=== PATIENT | male | born 1945 | race Caucasian/White ===

== ENCOUNTER → 2019-10-05 11:18 | Outpatient (BNVA) | payer MEDICARE, SELFPAY | PROVIDERS: Family Provider Family Medicine; PCP Family Medicine; Visit Provider Internal Medicine Rheumatology | DX: M05.79 Rheumatoid arthritis with rheumatoid factor of multiple sites without organ or systems involvement (principal); Z11.59 Encounter for screening for other viral diseases; Z11.1 Encounter for screening for respiratory tuberculosis; Z79.899 Other long term (current) drug therapy; Z79.01 Long term (current) use of anticoagulants; I25.10 Atherosclerotic heart disease of native coronary artery without angina pectoris; Z87.891 Personal history of nicotine dependence | CPT/HCPCS: 36415; 82565; 84460; 85025; 85651; 86140; 86480; 86704; 86706; 87340; 99214 ==

== ENCOUNTER → 2019-10-23 11:15 | Outpatient (BNVA) | payer MEDICARE, SELFPAY | PROVIDERS: Family Provider Family Medicine; Visit Provider Family Medicine | DX: J44.9 Chronic obstructive pulmonary disease, unspecified (principal); E78.5 Hyperlipidemia, unspecified | CPT/HCPCS: 80061 ==

== ENCOUNTER → 2019-12-10 10:09 | Outpatient (BNVA) | payer MEDICARE, SELFPAY | PROVIDERS: Family Provider Family Medicine; PCP Family Medicine; Visit Provider Internal Medicine Rheumatology | DX: M05.79 Rheumatoid arthritis with rheumatoid factor of multiple sites without organ or systems involvement (principal); G40.109 Localization-related (focal) (partial) symptomatic epilepsy and epileptic syndromes with simple partial seizures, not intractable, without status epilepticus; Z79.899 Other long term (current) drug therapy | CPT/HCPCS: 36415; 80076; 82565; 85025; 85651; 86140; 99213 ==

== ENCOUNTER → 2019-12-10 10:17 | Outpatient (BNVA) | payer MEDICARE, SELFPAY | PROVIDERS: Family Provider Family Medicine; PCP Family Medicine | DX: M05.79 Rheumatoid arthritis with rheumatoid factor of multiple sites without organ or systems involvement (principal) | CPT/HCPCS: 85025 ==

== ENCOUNTER 2019-12-12 15:44 | Outpatient (CLI) | payer MEDICARE, SELFPAY ==
[2019-12-12 16:28] LABS: Immunoglobulin IGA 348 mg/dL (70-400); Immunoglobulin IGG 1290 mg/dL (700-1600); Immunoglobulin IGM 44 mg/dL (40-230)
== END 2019-12-12 15:45 | disposition home or self-care (01) ==
LOC: LAB 15:50
PROVIDERS: Internal Medicine Critical Care Medicine; Family Provider Family Medicine; PCP Family Medicine; Visit Provider Family Medicine
DX: J47.9 Bronchiectasis, uncomplicated (principal)
CPT/HCPCS: 82784

== ENCOUNTER 2020-01-03 10:11 | Outpatient (CLI) | payer MEDICARE, SELFPAY ==
--- NOTE | 2020-01-03 10:30 | CT_ITS ---
WS: [id number] CT CHEST (HIGH RESOLUTION) WITHOUT INTRAVENOUS CONTRAST HISTORY: bronchiectasis TECHNIQUE: High-resolution supine and prone imaging with inspiration and expiration. Coronal and sagi ttal reformats are submitted. All CT scans at [facility] use at least one of these dose o ptimization techniques: automated exposure control; mA and/or kV adjustment per patient size (include s targeted exams where dose is matched to clinical indication); or iterative reconstruction. CONTRAST: None DLP: 1603.79 mGycm COMPARISON: None available. Lungs and central airway: Bilateral subpleural honeycombing and reticular pattern in a predominantly lower lobe distribution. Slightly greater honeycombing on the LEFT. There is also mild groundglass at tenuation with numerous cystic airspace disease and bulla. No significant amount of air trapping is d emonstrated. Cylindrical bronchiectasis in the RIGHT middle lobe and RIGHT lower lobe. Pleura: No pleural effusions. Heart and pericardium: Moderately enlarged cardiac chambers. Prior cardiac valve replacement. Dual le ad LEFT subclavian/defibrillator. No effusions. Mediastinum and michel: No mediastinum or hilar adenopathy. Vessels: Mild atherosclerosis aorta. Pulmonary artery size is not significantly enlarged. Chest wall and lower neck: Prior CABG. Upper abdomen: Partially visualized cyst in the upper pole LEFT kidney measures 2.5 cm in diameter. Osseous structures: Advanced degenerative changes of the thoracic spine. CT/CT chest wo con [id number] IMPRESSION: 1. Findings most consistent with Usual Interstitial Pneumonia. 2. Mild bronchiectasis in the RIGHT middle and RIGHT lower lobes. 3. Cardiomegaly and prior valve replacement and defibrillator placement.
== END 2020-01-03 10:12 | disposition home or self-care (01) ==
LOC: RADWPI 10:15
PROVIDERS: Family Provider Family Medicine; PCP Family Medicine; Visit Provider Internal Medicine Critical Care Medicine
DX: R06.02 Shortness of breath (principal); J47.9 Bronchiectasis, uncomplicated; I51.7 Cardiomegaly; Z95.2 Presence of prosthetic heart valve
CPT/HCPCS: 71250

== ENCOUNTER 2020-03-13 12:59 | Outpatient (CLI) | payer MEDICARE, SELFPAY ==
--- NOTE | 2020-03-13 14:00 | PFTS_ITS ---
Date of Study:03/14/20 Date of Dictation: MECHANICS: Forced vital capacity (FVC) is normal. Forced expiratory volume in one second (FEV1) is normal. FEV1/FVC is normal. FLOW VOLUME LOOP: Mild scooping likely secondary to aging or small airways disease. LUNG VOLUMES: Total lung capacity (TLC) is mildly reduced. Residual volume (RV) is reduced. DIFFUSING CAPACITY FOR CARBON MONOXIDE: Moderately reduced. INTERPRETATION: The spirometry is essentially normal. There is no significant postbronchodilator response. The total lung capacity is minimally reduced. Gas exchange (DLCO) is moderately reduced. MTDD
== END 2020-03-13 13:00 | disposition home or self-care (01) ==
LOC: RT 13:01
PROVIDERS: Family Provider Family Medicine; PCP Family Medicine; Visit Provider Internal Medicine Critical Care Medicine
DX: M19.90 Unspecified osteoarthritis, unspecified site (principal); M05.79 Rheumatoid arthritis with rheumatoid factor of multiple sites without organ or systems involvement; Z79.899 Other long term (current) drug therapy
CPT/HCPCS: 36415; 80076; 82565; 85025; 85651; 86140; 94060; 94726; 94729

== ENCOUNTER → 2020-03-17 12:59 | Outpatient (BNVA) | payer MEDICARE, SELFPAY | PROVIDERS: Family Provider Family Medicine; PCP Family Medicine; Visit Provider Internal Medicine | DX: M05.79 Rheumatoid arthritis with rheumatoid factor of multiple sites without organ or systems involvement (principal); R06.02 Shortness of breath; J47.9 Bronchiectasis, uncomplicated; Z87.891 Personal history of nicotine dependence; Z79.52 Long term (current) use of systemic steroids | CPT/HCPCS: 99213 ==

== ENCOUNTER 2020-04-17 11:13 | Outpatient (CLI) | payer MEDICARE, SELFPAY ==
[2020-04-17 11:36] LABS: Basophils % 0.5 %; Eosinophils # 0.1 10^3/uL (0.0-0.8); Eosinophils % 0.8 %; Hemoglobin 13.8 g/dL (11.7-16.6); Lymphocytes % 11.2 %; Mean Corpuscular HGB Conc 32.9 g/dL (30.0-36.0); Mean Corpuscular Hemoglobin 33.7 pg (28.0-34.0); Mean Corpuscular Volume 102.7 fL (80-94); Mean Platelet Volume 10.3 fL (7.4-10.4); Monocytes # 1.3 10^3/uL (0.2-0.9); Monocytes % 15.7 %; Neutrophils # 6.11 10^3/uL (1.8-7.7); Neutrophils % 71.6 %; Nucleated Red Blood Cells % 0 %; Platelet Count 228 10^3/cmm (130-400); Red Blood Count 4.09 10^6/uL (4.1-5.3); Red Cell Distribution Width 13.6 % (12.1-15.1); White Blood Count 8.5 10^3/uL (4.0-10.0)
[2020-04-17 11:56] LABS: Alanine Aminotransferase 11 U/L (0-41); Albumin Level 4.1 g/dL (3.5-5.2); Alkaline Phosphatase 73 IU/L (40-130); Anion Gap 12.9 (5-19); Aspartate Amino Transferase 11 U/L (0-40); Blood Urea Nitrogen 16 mg/dL (8-23); Calcium 9.8 mg/dL (8.5-10.5); Carbon Dioxide 26 mmol/L (22-29); Chloride 98 mmol/L (98-107); Globulin 3.5 g/dL (1.3-4.6); Glucose 96 mg/dL (65-115); Osmolality Calculated 270 mOsm/kg (285-295); Potassium 4.9 mmol/L (3.5-5.1); Sodium 132 mmol/L (136-145); Total Bilirubin 0.8 mg/dL (0.15-1.2); Total Protein 7.6 g/dL (6.6-8.7)
== END 2020-04-17 11:14 | disposition home or self-care (01) ==
LOC: LAB 11:16
PROVIDERS: PCP Family Medicine; Visit Provider Internal Medicine Critical Care Medicine
DX: J47.9 Bronchiectasis, uncomplicated (principal)
CPT/HCPCS: 36415; 80053; 85025; 87070; 87205

== ENCOUNTER → 2020-04-21 10:44 | Outpatient (BNVA) | payer MEDICARE, SELFPAY | PROVIDERS: PCP Family Medicine; Visit Provider Family Medicine | DX: D53.9 Nutritional anemia, unspecified (principal); E78.5 Hyperlipidemia, unspecified; E03.9 Hypothyroidism, unspecified | CPT/HCPCS: 80061; 82607; 82746; 84443 ==

== ENCOUNTER → 2020-05-06 14:35 | Outpatient (BNVA) | payer MEDICARE, SELFPAY | PROVIDERS: PCP Family Medicine; Visit Provider Urology | DX: N40.1 Benign prostatic hyperplasia with lower urinary tract symptoms (principal); R35.1 Nocturia | CPT/HCPCS: 81001 ==

== ENCOUNTER → 2020-06-10 10:01 | Outpatient (BNVA) | payer MEDICARE, SELFPAY | PROVIDERS: PCP Family Medicine; Visit Provider Internal Medicine Rheumatology | DX: Z79.899 Other long term (current) drug therapy (principal) | CPT/HCPCS: 36415; 80076; 82565; 85025; 85651; 86140 ==

== ENCOUNTER → 2020-06-16 10:57 | Outpatient (BNVA) | payer MEDICARE, SELFPAY | PROVIDERS: PCP Family Medicine; Visit Provider Internal Medicine | DX: M05.79 Rheumatoid arthritis with rheumatoid factor of multiple sites without organ or systems involvement (principal); Z79.899 Other long term (current) drug therapy; Z79.52 Long term (current) use of systemic steroids | CPT/HCPCS: 99213 ==

== ENCOUNTER → 2020-10-14 10:05 | Outpatient (BNVA) | payer MEDICARE, SELFPAY | PROVIDERS: PCP Family Medicine; Visit Provider Internal Medicine | DX: M05.79 Rheumatoid arthritis with rheumatoid factor of multiple sites without organ or systems involvement (principal); Z79.899 Other long term (current) drug therapy; Z79.52 Long term (current) use of systemic steroids; J47.9 Bronchiectasis, uncomplicated; Z87.891 Personal history of nicotine dependence | CPT/HCPCS: 99214 ==

== ENCOUNTER 2020-10-14 10:49 | Outpatient (CLI) | payer MEDICARE, SELFPAY ==
--- NOTE | 2020-10-14 10:55 | XR_ITS ---
WS: [id number] PROCEDURE: XR chest 2V* [id number] CLINICAL INFORMATION: Z79.899 - Other termite helper (current) drug therapy COMPARISON: 2018 FINDINGS: Heart: Cardiomegaly. AICD. Sternotomy. AVR. Lungs: Moderate chronic emphysematous changes. Elevation left hemidiaphragm. Volume loss left lower l obe. Small bilateral pleural effusions. Mild pulmonary vascular congestion. Bones: Bilateral TSA's. XR/XR chest 2V* [id number] IMPRESSION: 1. Cardiomegaly with mild pulmonary vessel congestion small bilateral pleural effusions. 2. Sternotomy with AICD. 3. No focal pneumonia.
== END 2020-10-14 10:50 | disposition home or self-care (01) ==
LOC: RADWPI 10:53
PROVIDERS: PCP Family Medicine; Visit Provider Internal Medicine
DX: Z79.899 Other long term (current) drug therapy (principal); I51.7 Cardiomegaly; J90 Pleural effusion, not elsewhere classified
CPT/HCPCS: 71046; 84443

== ENCOUNTER → 2020-10-15 12:39 | Outpatient (BNVA) | payer MEDICARE, SELFPAY | PROVIDERS: PCP Family Medicine; Visit Provider Family Medicine | DX: E03.9 Hypothyroidism, unspecified (principal); I51.7 Cardiomegaly | CPT/HCPCS: 80048; 83880 ==

== ENCOUNTER → 2020-10-20 13:07 | Outpatient (BNVA) | payer MEDICARE, SELFPAY | PROVIDERS: PCP Family Medicine; Visit Provider Family Medicine | DX: J90 Pleural effusion, not elsewhere classified (principal); M05.79 Rheumatoid arthritis with rheumatoid factor of multiple sites without organ or systems involvement; I51.7 Cardiomegaly; Z86.19 Personal history of other infectious and parasitic diseases | CPT/HCPCS: 71046; 80053; 85025; 85651; 86140 ==

== ENCOUNTER 2020-10-28 11:19 | Outpatient (CLI) | payer MEDICARE, SELFPAY ==
--- NOTE | 2020-10-28 11:29 | XRR_ITS ---
PROCEDURE INFORMATION: Exam: XR Chest, 2 Views Exam date and time: 10/28/2020 11:42 AM Age: 74 years old Clinical indication: Condition or disease; Lung condition and disease; Pneumonia; Other: Not specified; Prior surgery; Surgery type: Pacemaker, cardiac stent, heart valve TECHNIQUE: Imaging protocol: XR of the chest Views: 2 views. COMPARISON: CR XR chest 2V* [id number] 10/20/2020 1:26 PM FINDINGS: Tubes, catheters and devices: AICD. Lungs: Interstitial disease. Pleural spaces: Mild blunting of the costophrenic angles. Heart/Mediastinum: Valve replacement and cardiomegaly. Bones/joints: bilateral shoulder arthroplasties. Osteopenia and degenerative change. XR/XR chest 2V* [id number] IMPRESSION: Interstitial disease and cardiomegaly.
== END 2020-10-28 11:20 | disposition home or self-care (01) ==
PROVIDERS: PCP Family Medicine; Visit Provider Internal Medicine Critical Care Medicine
DX: J18.9 Pneumonia, unspecified organism (principal); I51.7 Cardiomegaly
CPT/HCPCS: 71046; 87070; 87205

== ENCOUNTER 2020-11-08 11:46 | Emergency (ER) | payer MEDICARE, SELFPAY ==
[2020-11-08 12:01] VITALS: BP 96/68; PULSE 101; RESP 18; TEMP 36.4; O2SAT 98; BMI 25.1
[2020-11-08 12:14] VITALS: BP 103/87; PULSE 89; O2SAT 97
--- NOTE | 2020-11-08 12:19 | XRR_ITS ---
PROCEDURE INFORMATION: Exam: XR Left Hand Exam date and time: 11/08/2020 12:46 PM Age: 74 years old Clinical indication: Injury or trauma; Fall; Blunt trauma (contusions or hematomas); Left; Middle finger; Additional info: Middle finger deformity fall TECHNIQUE: Imaging protocol: XR Left hand. Views: 3 or more views. COMPARISON: No relevant prior studies available. FINDINGS: Bones/joints: There is no evidence for acute fracture or malalignment. There is joint space narrowing at the left 1st CMC joint. Soft tissues: There is a radiopaque foreign body in the soft tissues dorsal to the distal radius. XR/XR hand LT min 3V* [id number] IMPRESSION: No acute findings.
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
[2020-11-08] MEDS: amoxicillin-clav 875-125 mg Tablet 1 TAB PO (14:19)
[2020-11-08 14:32] VITALS: BP 106/89; PULSE 117; RESP 16; O2SAT 92
--- NOTE | 2020-11-11 11:51 | DCPLANNER ---
channel business manager received message to schedule appointment with ENT. channel business manager emailed Codi. They will reviewed and contact patient with appointment information.
--- NOTE | 2020-11-18 14:51 | DCPLANNER ---
manager of international received an email from Sonya, that Dr. Pat does not see mandible fractures, that patient will need to see an oral surgeon. manager of international called patient and spoke with his about referral. manager of international was told that patient had seen a oral surgeon and had surgery. No further needs from case managers.
== END 2020-11-08 14:32 | disposition home or self-care (01) ==
PROVIDERS: Emergency Provider Nurse Practitioner Family; PCP Family Medicine
DX: S02.609A Fracture of mandible, unspecified, initial encounter for closed fracture (principal); S62.643A Nondisplaced fracture of proximal phalanx of left middle finger, initial encounter for closed fracture; Z79.82 Long term (current) use of aspirin; F03.90 Unspecified dementia, unspecified severity, without behavioral disturbance, psychotic disturbance, mood disturbance, and anxiety; E78.5 Hyperlipidemia, unspecified; Z95.0 Presence of cardiac pacemaker; I10 Essential (primary) hypertension; I48.0 Paroxysmal atrial fibrillation; Z95.1 Presence of aortocoronary bypass graft; Z87.891 Personal history of nicotine dependence; V59.9XXA Occupant (driver) (passenger) of pick-up truck or van injured in unspecified traffic accident, initial encounter
CPT/HCPCS: 70486; 73130; 99283

== ENCOUNTER → 2020-12-01 12:06 | Outpatient (BNVA) | payer MEDICARE, SELFPAY | PROVIDERS: PCP Family Medicine; Visit Provider Family Medicine | DX: E03.9 Hypothyroidism, unspecified (principal) | CPT/HCPCS: 84443 ==

== ENCOUNTER 2020-12-02 13:33 | Outpatient (CLI) | payer MEDICARE, SELFPAY ==
--- NOTE | 2020-12-02 13:30 | USCV_ITS ---
Antonio Sheldon Age: 74 Gender: M : 1945 Exam Date: 12/02/2020 13:50 Ordering Phys: Maria Fernanda Walker MD Technologist: Ivana Mcpherson Exam Location: [facility] [place] Indication: SOB BP: / HR: 65 Rhythm: Sinus Technical Quality: Fair MEASUREMENTS (Male / Female) Normal Values 2D ECHO LV Diastolic Diameter PLAX 5.9 cm 4.2 - 5.9 / 3.9 - 5.3 cm LV Systolic Diameter PLAX 5.6 cm LV Chamber Size 5.4 cm IVS Diastolic Thickness 1.2 cm 0.6 - 1.0 / 0.6 - 0.9 cm IVS Systolic Thickness 1.3 cm LVPW Diastolic Thickness 1.4 cm 0.6 - 1.0 / 0.6 - 0.9 cm LVPW Systolic Thickness 1.0 cm RV Chamber Size 3.2 cm LVOT Diameter 2.0 cm LV Ejection Fraction 2D Teich 11.3 % LV Ejection Fraction MOD 2C 35.1 % LV Ejection Fraction 2C AL 34.7 % LA Diameter 5.4 cm LA Width 4.5 cm LA Height 5.0 cm RA Width 4.2 cm RA Height 5.2 cm Aorta at Sinotubular Diameter 3.1 cm M-MODE LV Diastolic Diameter MM 6.0 cm 4.2 - 5.9 / 3.9 - 5.3 cm LV Systolic Diameter MM 5.6 cm LV Ejection Fraction MM Teich 17.0 % IVS Diastolic Thickness MM 1.1 cm 0.6 - 1.0 / 0.6 - 0.9 cm IVS Systolic Thickness MM 1.1 cm LVPW Diastolic Thickness MM 1.1 cm 0.6 - 1.0 / 0.6 - 0.9 cm LVPW Systolic Thickness MM 1.5 cm MV E Point Septal Separation 1.3 cm DOPPLER AV Peak Velocity 66.0 cm/s LVOT Peak Velocity 52.0 cm/s AV Area Cont Eq vti 1.7 cm squared AV Area Cont Eq pk 2.6 cm squared MV E' Velocity 10.0 cm/s TR Peak Velocity 274.0 cm/s TR Peak Gradient 30.0 mmHg TR Mean Velocity 200.8 cm/s TR Mean Gradient 17.0 mmHg TR Velocity Time Integral 72.0 cm TV Peak E Velocity 81.0 cm/s PV Peak Velocity 54.0 cm/s RV Acceleration Time 0.1 s RV Ejection Time 0.2 s RV AcT/ET 0.5 FINDINGS Left Ventricle Dilated left ventricular cavity with a severe diffuse hypokinesia. LV ejection fraction around 15 to 20%. Right Ventricle Pacemaker/ICD leads in the right ventricle pacemaker/ICD leads in the right atrium Right Atrium Moderately increased right atrial size. Left Atrium Moderately increased left atrial size. Mitral Valve Thickened mitral valve. Possible mitral annuloplasty ring present. Mild mitral regurgitation Aortic Valve Thickened aortic valve. Tricuspid Valve Moderately severe tricuspid regurgitation. The estimated pulmonary artery peak systolic pressure was around 35 mmHg Pulmonic Valve Mild pulmonary valve regurgitation. Pericardium Normal pericardium without effusion. Aorta Normal ascending aorta dimension. CONCLUSIONS Dilated left ventricular cavity with a severe diffuse hypokinesia. LV ejection fraction around 15 to 20%. Moderate biatrial enlargement Thickened aortic and mitral valves. Possible mitral annuloplasty ring present. Mild mitral regurgitation. Moderately severe tricuspid regurgitation. The estimated pulmonary artery peak systolic pressure was around 35 mmHg Pacemaker/ICD wires in the right atrium and right ventricle. Compared to the study from 06/14/2017, there is worsening of the LV systolic function Dr Mando Shaikh MD FAC (Electronically Signed) Final Date: 02 December 2020 18:45 S
== END 2020-12-02 13:34 | disposition home or self-care (01) ==
LOC: RAD 13:35
PROVIDERS: PCP Family Medicine; Visit Provider Internal Medicine Critical Care Medicine
DX: R06.02 Shortness of breath (principal); I08.3 Combined rheumatic disorders of mitral, aortic and tricuspid valves; Z95.0 Presence of cardiac pacemaker
CPT/HCPCS: 93306

== ENCOUNTER → 2020-12-08 14:08 | Outpatient (BNVA) | payer MEDICARE, SELFPAY | PROVIDERS: PCP Family Medicine; Visit Provider Specialist | DX: G40.109 Localization-related (focal) (partial) symptomatic epilepsy and epileptic syndromes with simple partial seizures, not intractable, without status epilepticus (principal); Z87.891 Personal history of nicotine dependence | CPT/HCPCS: 99213 ==

== ENCOUNTER → 2021-01-14 12:45 | Outpatient (BNVA) | payer MEDICARE, SELFPAY | PROVIDERS: PCP Family Medicine; Visit Provider Internal Medicine | DX: M05.79 Rheumatoid arthritis with rheumatoid factor of multiple sites without organ or systems involvement (principal); J47.9 Bronchiectasis, uncomplicated; Z79.899 Other long term (current) drug therapy; E03.9 Hypothyroidism, unspecified; Z87.891 Personal history of nicotine dependence | CPT/HCPCS: 99214 ==

== ENCOUNTER 2021-01-14 14:08 | Outpatient (CLI) | payer MEDICARE, SELFPAY ==
[2021-01-14 14:37] LABS: Basophils # 0.1 10^3/uL (0.0-0.1); Basophils % 1.3 %; Eosinophils # 0.2 10^3/uL (0.0-0.8); Eosinophils % 3.5 %; Hematocrit 44.1 % (42.0-52.0); Lymphocytes # 1.5 10^3/uL (0.8-4.8); Mean Corpuscular HGB Conc 31.7 g/dL (30.0-36.0); Mean Corpuscular Volume 100.9 fL (80-94); Monocytes # 0.6 10^3/uL (0.2-0.9); Monocytes % 10.6 %; Neutrophils # 3.53 10^3/uL (1.8-7.7); Neutrophils % 59.3 %; Nucleated Red Blood Cells % 0 %; Platelet Count 244 10^3/cmm (130-400); Red Blood Count 4.37 10^6/uL (4.1-5.3); Red Cell Distribution Width 13.2 % (12.1-15.1)
[2021-01-14 15:09] LABS: Alanine Aminotransferase 23 U/L (0-41); Albumin Level 3.6 g/dL (3.5-5.2); Alkaline Phosphatase 134 IU/L (40-130); Anion Gap 10.6 (5-19); Aspartate Amino Transferase 18 U/L (0-40); Blood Urea Nitrogen 21 mg/dL (8-23); Calcium 8.7 mg/dL (8.5-10.5); Carbon Dioxide 28 mmol/L (22-29); Chloride 103 mmol/L (98-107); Globulin 3.9 g/dL (1.3-4.6); Glucose 69 mg/dL (65-115); Osmolality Calculated 285 mOsm/kg (285-295); Potassium 4.6 mmol/L (3.5-5.1); Sodium 137 mmol/L (136-145); Thyroid Stimulating Hormone 5.32 uIU/mL (0.27-4.20); Total Bilirubin 0.7 mg/dL (0.15-1.2); Total Protein 7.5 g/dL (6.6-8.7)
[2021-01-14 16:23] LABS: Erythrocyte Sedimentation Rate 29 mm/hr (0-10)
== END 2021-01-14 14:09 | disposition home or self-care (01) ==
PROVIDERS: PCP Family Medicine; Visit Provider Internal Medicine
DX: Z79.899 Other long term (current) drug therapy (principal); E03.9 Hypothyroidism, unspecified
CPT/HCPCS: 36415; 80053; 84443; 85025; 85651

== ENCOUNTER 2021-01-21 10:51 | Outpatient (CLI) | payer MEDICARE, SELFPAY ==
--- NOTE | 2021-01-21 11:00 | CT_ITS ---
WS: [id number] HIGH-RESOLUTION CT CHEST TECHNIQUE: High-resolution CT chest. Noncontrast CT of the chest with coronal and sagittal reformatte d images. Inspiratory, expiratory, and prone imaging. CLINICAL INFORMATION: Bronchiectasis COMPARISON: CT chest January 03, 2020 DLP: 1205.[address] scans at [facility] use at least one of these dose optimization techniques: automat ed exposure control; mA and/or kV adjustment per patient size (includes targeted exams where dose is matched to clinical indication); or iterative reconstruction. FINDINGS: Cardiomegaly. Stable bilateral subpleural honeycombing more prominent in the lower lobes. Chronic emp hysematous changes with bulla formation. No air trapping on the expiratory imaging. Traction bronchie ctasis in the right middle lobe, right lower lobe, and left lower lobe unchanged. Noncalcified ground glass opacity in the right upper lobe measuring 6 mm. This is more prominent compared to previous. Re commend 6 month follow-up. AICD. Mitral valve replacement No mediastinal or hilar lymphadenopathy. Mild aortic calcification. Co ronary calcification. No axillary lymphadenopathy. Adrenal glands are normal. Left renal cyst measuri ng 2.6 cm. Hypertrophic changes thoracic spine. Sternotomy. CT/CT chest wo con [id number] IMPRESSION: 1. Cardiomegaly with mitral valve replacement. Prior sternotomy. AICD. 2. Moderate chronic emphysematous changes. 3. Stable interstitial lung disease (UIP) with subpleural honeycombing more pr ominent in the lower lobes. Mild traction bronchiectasis 4. Noncalcified groundglass opacity in the right upper lobe measuring 6 mm. Th is is more prominent compared to previous. Recommend 6 month follow-up. 5. No mediastinal or hilar lymphadenopathy. No axillary lymphadenopathy. 6. No other significant changes from previous.
== END 2021-01-21 10:52 | disposition home or self-care (01) ==
PROVIDERS: PCP Family Medicine; Visit Provider Internal Medicine Critical Care Medicine
DX: J47.9 Bronchiectasis, uncomplicated (principal); I51.7 Cardiomegaly; Z95.2 Presence of prosthetic heart valve; J84.9 Interstitial pulmonary disease, unspecified
CPT/HCPCS: 71250

== ENCOUNTER → 2021-03-10 09:10 | Outpatient (BNVA) | payer MEDICARE, SELFPAY | PROVIDERS: PCP Family Medicine; Visit Provider Internal Medicine | DX: M05.79 Rheumatoid arthritis with rheumatoid factor of multiple sites without organ or systems involvement (principal); Z79.899 Other long term (current) drug therapy | CPT/HCPCS: 36415; 80053; 85025; 85651; 86140 ==

== ENCOUNTER → 2021-03-12 12:59 | Outpatient (BNVA) | payer MEDICARE, SELFPAY | PROVIDERS: PCP Family Medicine; Visit Provider Internal Medicine | DX: M05.79 Rheumatoid arthritis with rheumatoid factor of multiple sites without organ or systems involvement (principal); J47.9 Bronchiectasis, uncomplicated; S02.609A Fracture of mandible, unspecified, initial encounter for closed fracture; Y93.9 Activity, unspecified; E03.9 Hypothyroidism, unspecified; Z79.899 Other long term (current) drug therapy; Z87.891 Personal history of nicotine dependence | CPT/HCPCS: 99214 ==

== ENCOUNTER → 2021-04-21 11:02 | Outpatient (BNVA) | payer MEDICARE, SELFPAY | PROVIDERS: PCP Family Medicine; Visit Provider Nurse Practitioner Family | DX: E03.9 Hypothyroidism, unspecified (principal) | CPT/HCPCS: 84443 ==

== ENCOUNTER → 2021-05-05 11:34 | Outpatient (BNVA) | payer MEDICARE, SELFPAY | PROVIDERS: PCP Family Medicine; Visit Provider Internal Medicine | DX: M05.79 Rheumatoid arthritis with rheumatoid factor of multiple sites without organ or systems involvement (principal); J47.9 Bronchiectasis, uncomplicated; I25.5 Ischemic cardiomyopathy; D53.9 Nutritional anemia, unspecified; S02.609D Fracture of mandible, unspecified, subsequent encounter for fracture with routine healing; Y93.9 Activity, unspecified; M25.511 Pain in right shoulder; Z96.611 Presence of right artificial shoulder joint; Z87.891 Personal history of nicotine dependence; N40.1 Benign prostatic hyperplasia with lower urinary tract symptoms | CPT/HCPCS: 72040; 73030; 81003; 99214 ==

== ENCOUNTER 2021-05-05 12:47 | Outpatient (CLI) | payer MEDICARE, SELFPAY ==
--- NOTE | 2021-05-05 12:52 | XR_ITS ---
WS: [id number] LATERAL CERVICAL SPINE: 3 view. Lateral radiographs are performed in upright neutral, flexion and extension to the patient's toleranc e. HISTORY: M05.79 - Rheumatoid arthritis with rheumatoid factor COMPARISON: 11/10/2009 Straightening of the normal cervical lordosis. Predental space remains normal with no change during f lexion or extension. Less than 2 mm anterolisthesis of C2 with no change. 2 mm retrolisthesis of C3 a nd C4 and C5 with no definite change during flexion-extension. Advanced degenerative disc space narrowing and endplate osteophytes at C3-4, C4-5 and C5-6. XR/XR cervical spine fl/ex [id number] IMPRESSION: 1. Multilevel degenerative disc disease and osteophytosis as above. 2. With flexion and extension no significant cervical spine instability.
--- NOTE | 2021-05-05 12:52 | XR_ITS ---
WS: [id number] RIGHT SHOULDER: 2 VIEW(S) TECHNIQUE: Internal and external rotation. HISTORY: M05.79 - Rheumatoid arthritis with rheumatoid factor COMPARISON: 08/22/2018 Status post RIGHT humeral head replacement. Large area of lucency surrounding the humeral head compon ent at the acetabulum. Increasing lucency around the humeral head and calcific deposits in the soft t issues around the humeral head. Humeral head prosthesis is slightly high riding with mild progression since prior exam. Mild narrowing of the AC joint. XR/XR shoulder RT min 2V* [id number] IMPRESSION: 1. Status post RIGHT humeral head arthroplasty. 2. Progressive lucency surrounding the humeral head prosthesis and increasing soft tissue densities. Suspicious for periprosthetic loosening.
== END 2021-05-05 12:48 | disposition home or self-care (01) ==
PROVIDERS: PCP Family Medicine; Visit Provider Internal Medicine
DX: M05.79 Rheumatoid arthritis with rheumatoid factor of multiple sites without organ or systems involvement (principal); N40.1 Benign prostatic hyperplasia with lower urinary tract symptoms
CPT/HCPCS: 72040; 73030; 81003

== ENCOUNTER → 2021-05-25 09:52 | Outpatient (BNVA) | payer MEDICARE, SELFPAY | PROVIDERS: PCP Family Medicine; Referring Provider Internal Medicine Cardiovascular Disease; Visit Provider Internal Medicine Cardiovascular Disease | DX: I25.5 Ischemic cardiomyopathy (principal); I48.0 Paroxysmal atrial fibrillation | CPT/HCPCS: 80048; 85025 ==

== ENCOUNTER → 2021-07-07 00:01 | Outpatient (BNVA) | payer MEDICARE, SELFPAY | PROVIDERS: PCP Family Medicine; Visit Provider Family Medicine | DX: N40.1 Benign prostatic hyperplasia with lower urinary tract symptoms (principal); E03.9 Hypothyroidism, unspecified; Z23 Encounter for immunization; M05.79 Rheumatoid arthritis with rheumatoid factor of multiple sites without organ or systems involvement; I10 Essential (primary) hypertension; E78.5 Hyperlipidemia, unspecified; R91.1 Solitary pulmonary nodule; Z76.89 Persons encountering health services in other specified circumstances | CPT/HCPCS: 80053; 80061; 84439; 84443; 84481; 85025; 85651 ==

== ENCOUNTER → 2021-07-22 09:34 | Outpatient (BNVA) | payer MEDICARE, SELFPAY | PROVIDERS: PCP Family Medicine; Visit Provider Internal Medicine | DX: M05.79 Rheumatoid arthritis with rheumatoid factor of multiple sites without organ or systems involvement (principal); J43.9 Emphysema, unspecified; I25.5 Ischemic cardiomyopathy; Z79.899 Other long term (current) drug therapy; Z87.891 Personal history of nicotine dependence | CPT/HCPCS: 99213; 99214 ==

== ENCOUNTER 2021-08-04 11:03 | Outpatient (CLI) | payer MEDICARE, SELFPAY ==
--- NOTE | 2021-08-04 11:30 | CT_ITS ---
WS: [id number] CT CHEST TECHNIQUE: Noncontrast CT of the chest with coronal and sagittal reformatted images. CLINICAL INFORMATION: R91.1 - Solitary pulmonary nodule COMPARISON: CT chest January 21, 2021 and January 03, 2020 DLP: 901.[address] scans at [facility] use at least one of these dose optimization techniques: automated e xposure control; mA and/or kV adjustment per patient size (includes targeted exams where dose is matc hed to clinical indication); or iterative reconstruction. FINDINGS: Stable bilateral subpleural honeycombing more prominent in the lower lobes is similar to previous. Mo derate chronic emphysematous changes with bulla formation. Previously described traction bronchiectasis in the right middle and both lower lobes is similar in a ppearance to previous. Stable bronchovascular thickening along the michel.Wedge-shaped area of partial consolidation measuring 5.5 x 3.2 cm right lower lobe with air bronchograms and a few surrounding pat eusebio opacities is new from previous. Recommend correlation for pneumonia. Noncalcified groundglass opacity right upper lobe measuring 6 mm is unchanged since January 21, 2021 Cardiomegaly. AICD. Prior mitral valve replacement. No mediastinal or hilar lymphadenopathy. Mild aor tic calcification. Coronary calcification. Stable left renal cyst measuring 2.5 CM. Adrenal glands ar e normal. No axillary lymphadenopathy. Hypertrophic changes thoracic spine. Prior sternotomy. Bilater al total shoulder arthroplasty. Small esophageal hiatal hernia. CT/CT chest wo con [id number] IMPRESSION: 1. Stable interstitial lung disease (UIP) with subpleural honeycombing more pr ominent in the lower lobes. Stable traction bronchiectasis more prominent in th e right middle lobe and both lower lobes. 2. Wedge-shaped area of partial consolidation measuring 5.5 x 3.2 cm right low er lobe with air bronchograms and a few surrounding patchy opacities is new fro m previous. Recommend correlation for pneumonia. 3. Noncalcified groundglass opacity in the right upper lobe measuring 6 mm. Th is is unchanged. Recommend 12 month follow-up. 4. No mediastinal or hilar lymphadenopathy. No axillary lymphadenopathy. 5. No other significant changes from previous.
== END 2021-08-04 11:04 | disposition home or self-care (01) ==
PROVIDERS: PCP Family Medicine; Visit Provider Internal Medicine Critical Care Medicine
DX: R91.1 Solitary pulmonary nodule (principal)
CPT/HCPCS: 71250

== ENCOUNTER 2021-09-05 16:08 | Emergency (ER) | payer MEDICARE, SELFPAY ==
[2021-09-05 16:52] VITALS: BP 112/73; PULSE 77; RESP 29; TEMP 36.6; O2SAT 87; BMI 25.0
--- NOTE | 2021-09-05 16:55 | XRR_ITS ---
PROCEDURE INFORMATION: Exam: XR Chest Exam date and time: 09/05/2021 4:55 PM Age: 75 years old Clinical indication: Cough and shortness of breath; Prior surgery; Surgery date: 6+ months; Surgery type: Open heart; Additional info: Dyspnea/cough TECHNIQUE: Imaging protocol: XR of the chest. Views: 1 view. COMPARISON: CT chest wo con [id number] 08/04/2021 11:21 AM FINDINGS: Tubes, catheters and devices: Pacemaker. Lungs: Patchy right lung field and left mid to lower lung field ground-glass airspace infiltrates. Pleural spaces: Unremarkable. No pleural effusion. No pneumothorax. Heart/Mediastinum: Cardiomegaly. Bones/joints: Sternotomy wires. XR/XR chest 1V portable [id number] IMPRESSION: 1. Cardiomegaly. 2. Patchy right lung field and left mid to lower lung field ground-glass airspace infiltrates.
--- NOTE | 2021-09-05 16:56 | ECG_ITS ---
[facility] Test Date: 2021-09-05 Pat Name: Antonio Sheldon Department: Room: Gender: Male Alley Cleaner: : 1945 Requested By: Duong Dee Order Number: [id number] Moe MD: Mando Shaikh M.D. Measurements Intervals [place] Rate: 55 P: DC: QRS: 245 QRSD: 186 T: 110 QT: 469 QTc: 451 Interpretive Statements ATRIAL FIBRILLATION WITH SLOW VENTRICULAR RESPONSE WITH ABERRANT CONDUCTION OR VENTRICULAR PREMATURE COMPLEXES RIGHT AXIS DEVIATION [QRS AXIS > 100] RIGHT BUNDLE BRANCH BLOCK [120+ ms QRS DURATION, UPRIGHT V1, 40+ ms S IN I/aVL/V4/V5/V6] POSSIBLE ANTERIOR MYOCARDIAL INFARCTION , OF INDETERMINATE AGE [30 ms Q WAVE IN V3/V4, OR R < 0.2 mV IN V4] INFERIOR MYOCARDIAL INFARCTION , OF INDETERMINATE AGE [40+ ms Q WAVE AND/OR ST/T ABNORMALITY IN II/aVF] Compared to ECG 09/07/2018 09:52:30 Ventricular premature complex(es) now present Aberrant conduction of supraventricular beat(s) now present Sinus rhythm no longer present First degree AV block no longer present Myocardial infarct finding still present Electronically Signed On 09-06-2021 20:05:01 CERTIFIED MEDICAL TRANSCRIPTIONIST by Mando Shaikh M.D. [id number]
--- NOTE | 2021-09-05 17:01 | ED_ITS ---
Documented by User: Duong Ledesma DO 09/07/21 07:24 HPI - SOB/Dyspnea General: Chief Complaint: Shortness of Breath/Dyspnea Stated Complaint: LOW 02/WEAK/SPITTING UP BLOOD Time Seen by Provider: 09/05/21 16:55 History of Present Illness: HPI Narrative: 75-year-old male presents emergency room with complaint of shortness of breath leg swelling. He is also had a little bit of hemoptysis. The hemoptysis is not a new issue for him. He denies any chest pain is extremely tremulous. He is on apixaban because of atrial fibrillation. He also has a pacemaker in place and in triage his O2 sat on the pulse monitor read 200 however when we got him back to the room looked about to the rhythm monitor he was in the 60s and 70s however triage monitor was picking up the tremulousness and translating into heart rate. MD elicited complaint: shortness of breath and cough Pertinent past history: COPD Onset (ago): day(s) Timing: constant Severity: mild Exacerbating factors: lying flat and exertion Relieving factors: oxygen and rest Known history of: COPD and congestive heart failure Associated symptoms: Reports chest congestion, cough, diaphoresis, dizziness, hemoptysis, lightheadedness, orthopnea and palpitations; Deny abdominal pain, chest pain, extremity pain, fever(s), myalgias, paresthesias, polydipsia, polyuria, rash, sense of impending doom, syncope or vomiting Treatment prior to arrival: none Review of Systems Const: Reports: diaphoresis; Denies: fever(s) Card: Reports: palpitations, lightheadedness and orthopnea; Denies: chest pain or syncope Resp: Reports: hemoptysis and chest congestion GI: Denies: abdominal pain or vomiting Musc: Denies: extremity pain Neuro: Reports: dizziness Endo: Denies: polyuria or polydipsia PFSH ED PFSH: Medical History Benign prostatic hyperplasia with lower urinary tract symptoms BPH loc w urin obs/LUTS Cardiac defibrillator in place Dementia Dyslipidemia Enrolled in chronic care management GERD (gastroesophageal reflux disease) H/O cardiac pacemaker History of 2019 novel coronavirus disease (COVID-19) Hypertension Hypothyroid Ischemic cardiomyopathy Nocturia ELPIDIO (obstructive sleep apnea) Paroxysmal atrial fibrillation Simple partial seizure with psychic dysfunction Surgical History H/O shoulder replacement Hx of CABG Hx of cataract surgery Stented coronary artery Family History Father , at age 35 [place] Mother , at age 58 Brain tumor Other CAD (coronary artery disease) Cancer Social History Smoking and tobacco status: former smoker Quit status (tobacco): has quit using tobacco Year quit tobacco: 1982 - PPD x 20 Years Alcohol intake: never Lives independently: Yes Household members: spouse Marital status: Current occupational status: disabled Previous occupational history: [employer] 08/03/19 History of recent travel: No Current gender identity: Male Physical Exam 2 Const: GENERAL APPEARANCE: cooperative ORIENTATION/CONSCIOUSNESS: Yes awake, Yes oriented to person, Yes oriented to place and Yes oriented to time HENMT: COMMON NORMALS: normocephalic, atraumatic and hearing grossly normal bilaterally HEAD & SCALP: normocephalic and atraumatic Resp: EFFORT & INSPECTION: Yes labored and Yes Actively coughing AUSCULTATION: crackles and wheezes Cardio: COMMON NORMALS: regular rate RATE: regular rate RHYTHM: abnormal rhythm irregularly irregular GI: COMMON NORMALS: Soft to palpation and No hepatosplenomegaly present AUSCULTATION: Yes normoactive bowel sounds PALPATION: Yes Soft to palpation, No Tenderness to palpation present (GI), No Guarding due to palpation present (GI) and Yes No hepatosplenomegaly present Extremity: COMMON NORMALS: normal to inspection, capillary refill normal, no clubbing, cyanosis or edema, no calf tenderness and no pedal edema Neuro: SENSORIUM/ORIENTATION: Yes oriented to person, Yes oriented to place and Yes oriented to time Skin: COMMON NORMALS: no rashes or lesions noted GENERAL SKIN EXAM: no rashes or lesions noted Course Vital Signs: Vital signs: Vital Signs Temperature 97.9 F 09/05/21 22:44 Pulse Rate 52 L 09/05/21 22:44 Respiratory Rate 24 H 09/05/21 22:44 Blood Pressure 103/66 09/05/21 22:44 Pulse Oximetry 94 09/05/21 22:44 MDM - SOB/Dyspnea MDM Narrative: Medical decision making narrative: Care turned over to Dr. Mccall at change of shift see his notes for final diagnosis and disposition. Lab Data: Labs: Lab Results 09/05/21 09/05/21 09/05/21 16:59 16:59 16:59 WBC 9.8 10^3/uL 10^3/ uL (4.0-10.0) RBC 3.92 10^6/uL L 10 ^6/uL (4.1-5.3) Hgb 13.4 g/dL g/dL (11.7-16.6) Hct 40.2 % L % (42.0-52.0) MCV 102.6 fl H fl (80-94) MCH 34.2 pg H pg (28.0-34.0) MCHC 33.3 g/dL g/dL (30.0-36.0) RDW 16.6 % H % (12.1-15.1) Plt Count 268 10^3/cmm 10^3 /cmm (130-400) MPV 11.0 fL H fL (7.4-10.4) Neut % (Auto) 87.9 % % Lymph % (Auto) 6.0 % % [place] % (Auto) 5.0 % % Eos % (Auto) 0.4 % % Baso % (Auto) 0.3 % % Neut # (Auto) 8.61 10^3/uL H 10 ^3/uL (1.8-7.7) Lymph # (Auto) 0.6 10^3/uL L 10^ 3/uL (0.8-4.8) [place] # (Auto) 0.5 10^3/uL 10^3/ uL (0.2-0.9) Eos # (Auto) 0.0 10^3/uL 10^3/ uL (0.0-0.8) Baso # (Auto) 0.0 10^3/uL 10^3/ uL (0.0-0.1) Nucleated RBC % (a uto) 0 % % Nucleated RBCs # 0.0 /100WBC /100W BC Specimen Type Sample Site ABG pH ABG pCO2 ABG pO2 ABG HCO3 ABG O2 Saturation ABG Base Excess Ruben Test A-a O2 Gradient Hematocrit Hgb O2 Saturation Carboxyhemoglobin Methemoglobin Total Hemoglobin Ionized Calcium O2 Delivery Device O2 Liters/Min FiO2 Home And [employer] Visitor ID Sodium 135 mmol/L L mmol /L (136-145) Potassium 3.7 mmol/L mmol/L (3.5-5.1) Chloride 95 mmol/L L mmol/ L (98-107) Carbon Dioxide 24 mmol/L mmol/L (22-29) Anion Gap 19.7 H (5-19) BUN 33 mg/dL H mg/dL (8-23) Creatinine 1.6 mg/dL H mg/dL (0.7-1.2) GFR Calculation Not Reportable Glucose 123 mg/dL H mg/dL (65-115) Calculated Osmolal ity 289 mOsm/kg mOsm/ kg (285-295) Calcium 8.7 mg/dL mg/dL (8.5-10.5) Total Bilirubin 2.0 mg/dL H mg/dL (0.15-1.2) AST 28 U/L U/L (0-40) ALT 18 U/L U/L (0-41) Alkaline Phosphata se 202 IU/L H IU/L (40-130) Creatine Kinase 43 U/L U/L (39-308) Troponin T Baselin e 22 ng/L H ng/L (0-15) Troponin T 120 Min augustine Delta Troponin T Troponin T Hi Sens 6Hr Troponin T Hi Sens 6Hr Delta NT-Pro-B Natriuret Pep 6930 pg/mL H pg/m L (0-450) Total Protein 8.0 g/dL g/dL (6.6-8.7) Albumin 3.4 g/dL L g/dL (3.5-5.2) Globulin 4.6 g/dL g/dL (1.3-4.6) Urine Color Urine Appearance Urine pH Ur Specific Gravit y Urine Protein Urine Glucose (UA) Urine Ketones Urine Blood Urine Nitrate Urine Bilirubin Urine Urobilinogen Ur Leukocyte Olive ase Urine RBC Urine WBC Ur Squamous Epith Cells Amorphous Sediment Urine Bacteria Hyaline Casts SARS-CoV-2 Ag (Rap id) 09/05/21 09/05/21 09/05/21 17:24 18:39 19:24 WBC RBC Hgb Hct MCV MCH MCHC RDW Plt Count MPV Neut % (Auto) Lymph % (Auto) [place] % (Auto) Eos % (Auto) Baso % (Auto) Neut # (Auto) Lymph # (Auto) [place] # (Auto) Eos # (Auto) Baso # (Auto) Nucleated RBC % (a uto) Nucleated RBCs # Specimen Type Arterial Sample Site Radial, left ABG pH 7.52 H (7.35-7.45) ABG pCO2 29.5 mmHg L mmHg (35-45) ABG pO2 129.0 mmHg H mmHg (80.0-100.0) ABG HCO3 24.1 mmol/L mmol/ L (22-26) ABG O2 Saturation 99.7 ABG Base Excess 2.1 mmol/L H mmol /L (-2.0-2.0) Ruben Test Pos A-a O2 Gradient 71.1 mmHg H mmHg (5-10) Hematocrit 39.7 % L % (42-52) Hgb O2 Saturation 97.1 % % (95-100) Carboxyhemoglobin 1.9 %THgb %THgb (0.4-20.1) Methemoglobin 0.7 % % (0.4-1.5) Total Hemoglobin 13.0 g/dL L g/dL (14-18) Ionized Calcium 1.2 mmol/L mmol/L (1.1-1.4) O2 Delivery Device Nrb O2 Liters/Min 10.0 % % FiO2 100.0 % % Home And School Visitor ID Monro Sodium 138.0 mmol/L mmol /L (131-143) Potassium 3.3 mmol/L L mmol /L (3.5-5.0) Chloride Carbon Dioxide Anion Gap BUN Creatinine GFR Calculation Glucose 127.0 mg/dL H mg/ dL (70-115) Calculated Osmolal ity Calcium Total Bilirubin AST ALT Alkaline Phosphata se Creatine Kinase Troponin T Baselin e Troponin T 120 Min augustine Delta Troponin T Troponin T Hi Sens 6Hr Troponin T Hi Sens 6Hr Delta NT-Pro-B Natriuret Pep Total Protein Albumin Globulin Urine Color Yellow (Yellow) Urine Appearance Clear (CLEAR) Urine pH 5 (5-7) Ur Specific Gravit y 1.010 (1.005-1.030) Urine Protein Trace (Negative) Urine Glucose (UA) Norm (Normal) Urine Ketones Negative (Negative) Urine Blood 2+ H (Negative) Urine Nitrate Negative (Negative) Urine Bilirubin Neg (Negative) Urine Urobilinogen Norm mg/dL mg/dL (Negative) Ur Leukocyte Olive ase Negative (Negative) Urine RBC 0-4 /hpf H /hpf (0-2) Urine WBC 0-4 /hpf H /hpf (0-5) Ur Squamous Epith Cells 0-4 /hpf H /hpf (0-5) Amorphous Sediment Not Reportable Urine Bacteria Trace /hpf /hpf (NONE) Hyaline Casts 0-4 /lpf H /lpf SARS-CoV-2 Ag (Rap id) Negative (Negative) 09/05/21 09/05/21 19:29 22:22 WBC RBC Hgb Hct MCV MCH MCHC RDW Plt Count MPV Neut % (Auto) Lymph % (Auto) [place] % (Auto) Eos % (Auto) Baso % (Auto) Neut # (Auto) Lymph # (Auto) [place] # (Auto) Eos # (Auto) Baso # (Auto) Nucleated RBC % (a uto) Nucleated RBCs # Specimen Type Sample Site ABG pH ABG pCO2 ABG pO2 ABG HCO3 ABG O2 Saturation ABG Base Excess Ruben Test A-a O2 Gradient Hematocrit Hgb O2 Saturation Carboxyhemoglobin Methemoglobin Total Hemoglobin Ionized Calcium O2 Delivery Device O2 Liters/Min FiO2 Home And [employer] Visitor ID Sodium Potassium Chloride Carbon Dioxide Anion Gap BUN Creatinine GFR Calculation Glucose Calculated Osmolal ity Calcium Total Bilirubin AST ALT Alkaline Phosphata se Creatine Kinase Troponin T Baselin e Troponin T 120 Min augustine 21.33 ng/L H ng/L (0-15) Delta Troponin T -0.67 ABS# L ABS# (0-10) Troponin T Hi Sens 6Hr 20.14 ng/L H ng/L (0-15) Troponin T Hi Sens 6Hr Delta -1.86 ng/L L ng/L (0-12) NT-Pro-B Natriuret Pep Total Protein Albumin Globulin Urine Color Urine Appearance Urine pH Ur Specific Gravit y Urine Protein Urine Glucose (UA) Urine Ketones Urine Blood Urine Nitrate Urine Bilirubin Urine Urobilinogen Ur Leukocyte Olive ase Urine RBC Urine WBC Ur Squamous Epith Cells Amorphous Sediment Urine Bacteria Hyaline Casts SARS-CoV-2 Ag (Rap id) Discharge Plan Discharge Patient Disposition: Xfer Short-Term Hosp Clinical Impression: Respiratory failure Qualifiers: Chronicity: acute on chronic Respiratory failure complication: hypoxia Qualified Code(s): J96.21 - Acute and chronic respiratory failure with hypoxia Congestive heart failure (CHF) Qualifiers: Heart failure type: systolic Heart failure chronicity: acute on chronic Qualified Code(s): I50.23 - Acute on chronic systolic (congestive) heart failure Condition: Stable Referrals: Princess Dove MD [Primary Care Provider] - Coding Level of Care Code ED Government Minister for Chg Fwd Documented by User: Marcelo Mccall DO 09/05/21 22:10 HPI - SOB/Dyspnea General: Chief Complaint: Shortness of Breath/Dyspnea Stated Complaint: LOW 02/WEAK/SPITTING UP BLOOD Time Seen by Provider: 09/05/21 16:55 PFSH ED PFSH: Medical History Benign prostatic hyperplasia with lower urinary tract symptoms BPH loc w urin obs/LUTS Cardiac defibrillator in place Dementia Dyslipidemia Enrolled in chronic care management GERD (gastroesophageal reflux disease) H/O cardiac pacemaker History of 2019 novel coronavirus disease (COVID-19) Hypertension Hypothyroid Ischemic cardiomyopathy Nocturia ELPIDIO (obstructive sleep apnea) Paroxysmal atrial fibrillation Simple partial seizure with psychic dysfunction Surgical History H/O shoulder replacement Hx of CABG Hx of cataract surgery Stented coronary artery Family History Father , at age 35 [place] Mother , at age 58 Brain tumor Other CAD (coronary artery disease) Cancer Social History Smoking and tobacco status: former smoker Quit status (tobacco): has quit using tobacco Year quit tobacco: 1982 - PPD x 20 Years Alcohol intake: never Lives independently: Yes Household members: spouse Marital status: Current occupational status: disabled Previous occupational history: [employer] 08/03/19 History of recent travel: No Current gender identity: Male Course Consultations: Consultation #1: Maureen Espinoza. Vital Signs: Vital signs: Vital Signs Temperature 97.9 F 09/05/21 22:44 Pulse Rate 52 L 09/05/21 22:44 Respiratory Rate 24 H 09/05/21 22:44 Blood Pressure 103/66 09/05/21 22:44 Pulse Oximetry 94 09/05/21 22:44 MDM - SOB/Dyspnea MDM Narrative: Medical decision making narrative: 75-year-old gentleman with a history of heart failure. He was checked out to me by Dr. Ledesma at shift change. He presents with shortness of breath. He has an increased oxygen requirement. He is now on 6 L nasal cannula. He usually uses 2. Blood pressure currently 90/60. Heart rate paced 55. Respirations are down to 20. He satting 95% on 6 L. His BNP is significantly elevated. He has right and left hazy opacities in the lower lung carrasco likely related to heart failure. He has a negative COVID-19 rapid test. He is on apixaban. He requires admission for hypoxic respiratory failure with heart failure. We have no beds available here. We spoke with Maureen in [place], who is willing to take in transfer Lab Data: Labs: Lab Results 09/05/21 09/05/21 09/05/21 16:59 16:59 16:59 WBC 9.8 10^3/uL 10^3/ uL (4.0-10.0) RBC 3.92 10^6/uL L 10 ^6/uL (4.1-5.3) Hgb 13.4 g/dL g/dL (11.7-16.6) Hct 40.2 % L % (42.0-52.0) MCV 102.6 fl H fl (80-94) MCH 34.2 pg H pg (28.0-34.0) MCHC 33.3 g/dL g/dL (30.0-36.0) RDW 16.6 % H % (12.1-15.1) Plt Count 268 10^3/cmm 10^3 /cmm (130-400) MPV 11.0 fL H fL (7.4-10.4) Neut % (Auto) 87.9 % % Lymph % (Auto) 6.0 % % [place] % (Auto) 5.0 % % Eos % (Auto) 0.4 % % Baso % (Auto) 0.3 % % Neut # (Auto) 8.61 10^3/uL H 10 ^3/uL (1.8-7.7) Lymph # (Auto) 0.6 10^3/uL L 10^ 3/uL (0.8-4.8) [place] # (Auto) 0.5 10^3/uL 10^3/ uL (0.2-0.9) Eos # (Auto) 0.0 10^3/uL 10^3/ uL (0.0-0.8) Baso # (Auto) 0.0 10^3/uL 10^3/ uL (0.0-0.1) Nucleated RBC % (a uto) 0 % % Nucleated RBCs # 0.0 /100WBC /100W BC Specimen Type Sample Site ABG pH ABG pCO2 ABG pO2 ABG HCO3 ABG O2 Saturation ABG Base Excess Ruben Test A-a O2 Gradient Hematocrit Hgb O2 Saturation Carboxyhemoglobin Methemoglobin Total Hemoglobin Ionized Calcium O2 Delivery Device O2 Liters/Min FiO2 Home And [employer] Visitor ID Sodium 135 mmol/L L mmol /L (136-145) Potassium 3.7 mmol/L mmol/L (3.5-5.1) Chloride 95 mmol/L L mmol/ L (98-107) Carbon Dioxide 24 mmol/L mmol/L (22-29) Anion Gap 19.7 H (5-19) BUN 33 mg/dL H mg/dL (8-23) Creatinine 1.6 mg/dL H mg/dL (0.7-1.2) GFR Calculation Not Reportable Glucose 123 mg/dL H mg/dL (65-115) Calculated Osmolal ity 289 mOsm/kg mOsm/ kg (285-295) Calcium 8.7 mg/dL mg/dL (8.5-10.5) Total Bilirubin 2.0 mg/dL H mg/dL (0.15-1.2) AST 28 U/L U/L (0-40) ALT 18 U/L U/L (0-41) Alkaline Phosphata se 202 IU/L H IU/L (40-130) Creatine Kinase 43 U/L U/L (39-308) Troponin T Baselin e 22 ng/L H ng/L (0-15) Troponin T 120 Min augustine Delta Troponin T Troponin T Hi Sens 6Hr Troponin T Hi Sens 6Hr Delta NT-Pro-B Natriuret Pep 6930 pg/mL H pg/m L (0-450) Total Protein 8.0 g/dL g/dL (6.6-8.7) Albumin 3.4 g/dL L g/dL (3.5-5.2) Globulin 4.6 g/dL g/dL (1.3-4.6) Urine Color Urine Appearance Urine pH Ur Specific Gravit y Urine Protein Urine Glucose (UA) Urine Ketones Urine Blood Urine Nitrate Urine Bilirubin Urine Urobilinogen Ur Leukocyte Olive ase Urine RBC Urine WBC Ur Squamous Epith Cells Amorphous Sediment Urine Bacteria Hyaline Casts SARS-CoV-2 Ag (Rap id) 09/05/21 09/05/21 09/05/21 17:24 18:39 19:24 WBC RBC Hgb Hct MCV MCH MCHC RDW Plt Count MPV Neut % (Auto) Lymph % (Auto) [place] % (Auto) Eos % (Auto) Baso % (Auto) Neut # (Auto) Lymph # (Auto) [place] # (Auto) Eos # (Auto) Baso # (Auto) Nucleated RBC % (a uto) Nucleated RBCs # Specimen Type Arterial Sample Site Radial, left ABG pH 7.52 H (7.35-7.45) ABG pCO2 29.5 mmHg L mmHg (35-45) ABG pO2 129.0 mmHg H mmHg (80.0-100.0) ABG HCO3 24.1 mmol/L mmol/ L (22-26) ABG O2 Saturation 99.7 ABG Base Excess 2.1 mmol/L H mmol /L (-2.0-2.0) Ruben Test Pos A-a O2 Gradient 71.1 mmHg H mmHg (5-10) Hematocrit 39.7 % L % (42-52) Hgb O2 Saturation 97.1 % % (95-100) Carboxyhemoglobin 1.9 %THgb %THgb (0.4-20.1) Methemoglobin 0.7 % % (0.4-1.5) Total Hemoglobin 13.0 g/dL L g/dL (14-18) Ionized Calcium 1.2 mmol/L mmol/L (1.1-1.4) O2 Delivery Device Nrb O2 Liters/Min 10.0 % % FiO2 100.0 % % Home And School Visitor ID Monro Sodium 138.0 mmol/L mmol /L (131-143) Potassium 3.3 mmol/L L mmol /L (3.5-5.0) Chloride Carbon Dioxide Anion Gap BUN Creatinine GFR Calculation Glucose 127.0 mg/dL H mg/ dL (70-115) Calculated Osmolal ity Calcium Total Bilirubin AST ALT Alkaline Phosphata se Creatine Kinase Troponin T Baselin e Troponin T 120 Min augustine Delta Troponin T Troponin T Hi Sens 6Hr Troponin T Hi Sens 6Hr Delta NT-Pro-B Natriuret Pep Total Protein Albumin Globulin Urine Color Yellow (Yellow) Urine Appearance Clear (CLEAR) Urine pH 5 (5-7) Ur Specific Gravit y 1.010 (1.005-1.030) Urine Protein Trace (Negative) Urine Glucose (UA) Norm (Normal) Urine Ketones Negative (Negative) Urine Blood 2+ H (Negative) Urine Nitrate Negative (Negative) Urine Bilirubin Neg (Negative) Urine Urobilinogen Norm mg/dL mg/dL (Negative) Ur Leukocyte Olive ase Negative (Negative) Urine RBC 0-4 /hpf H /hpf (0-2) Urine WBC 0-4 /hpf H /hpf (0-5) Ur Squamous Epith Cells 0-4 /hpf H /hpf (0-5) Amorphous Sediment Not Reportable Urine Bacteria Trace /hpf /hpf (NONE) Hyaline Casts 0-4 /lpf H /lpf SARS-CoV-2 Ag (Rap id) Negative (Negative) 09/05/21 09/05/21 19:29 22:22 WBC RBC Hgb Hct MCV MCH MCHC RDW Plt Count MPV Neut % (Auto) Lymph % (Auto) [place] % (Auto) Eos % (Auto) Baso % (Auto) Neut # (Auto) Lymph # (Auto) [place] # (Auto) Eos # (Auto) Baso # (Auto) Nucleated RBC % (a uto) Nucleated RBCs # Specimen Type Sample Site ABG pH ABG pCO2 ABG pO2 ABG HCO3 ABG O2 Saturation ABG Base Excess Ruben Test A-a O2 Gradient Hematocrit Hgb O2 Saturation Carboxyhemoglobin Methemoglobin Total Hemoglobin Ionized Calcium O2 Delivery Device O2 Liters/Min FiO2 Home And School Visitor ID Sodium Potassium Chloride Carbon Dioxide Anion Gap BUN Creatinine GFR Calculation Glucose Calculated Osmolal ity Calcium Total Bilirubin AST ALT Alkaline Phosphata se Creatine Kinase Troponin T Baselin e Troponin T 120 Min augustine 21.33 ng/L H ng/L (0-15) Delta Troponin T -0.67 ABS# L ABS# (0-10) Troponin T Hi Sens 6Hr 20.14 ng/L H ng/L (0-15) Troponin T Hi Sens 6Hr Delta -1.86 ng/L L ng/L (0-12) NT-Pro-B Natriuret Pep Total Protein Albumin Globulin Urine Color Urine Appearance Urine pH Ur Specific Gravit y Urine Protein Urine Glucose (UA) Urine Ketones Urine Blood Urine Nitrate Urine Bilirubin Urine Urobilinogen Ur Leukocyte Olive ase Urine RBC Urine WBC Ur Squamous Epith Cells Amorphous Sediment Urine Bacteria Hyaline Casts SARS-CoV-2 Ag (Rap id) Discharge Plan Discharge Patient Disposition: Xfer Short-Term Hosp Clinical Impression: Respiratory failure Qualifiers: Chronicity: acute on chronic Respiratory failure complication: hypoxia Qualified Code(s): J96.21 - Acute and chronic respiratory failure with hypoxia Congestive heart failure (CHF) Qualifiers: Heart failure type: systolic Heart failure chronicity: acute on chronic Qualified Code(s): I50.23 - Acute on chronic systolic (congestive) heart failure Condition: Stable Referrals: Princess Dove MD [Primary Care Provider] - Coding Level of Care Code ED Government Minister for David Rod
[2021-09-05 17:06] LABS: Basophils % 0.3 %; Eosinophils % 0.4 %; Hematocrit 40.2 % (42.0-52.0); Hemoglobin 13.4 g/dL (11.7-16.6); Lymphocytes # 0.6 10^3/uL (0.8-4.8); Mean Corpuscular HGB Conc 33.3 g/dL (30.0-36.0); Mean Corpuscular Hemoglobin 34.2 pg (28.0-34.0); Mean Corpuscular Volume 102.6 fl (80-94); Monocytes # 0.5 10^3/uL (0.2-0.9); Neutrophils # 8.61 10^3/uL (1.8-7.7); Neutrophils % 87.9 %; Nucleated Red Blood Cells % 0 %; Platelet Count 268 10^3/cmm (130-400); Red Blood Count 3.92 10^6/uL (4.1-5.3); Red Cell Distribution Width 16.6 % (12.1-15.1); White Blood Count 9.8 10^3/uL (4.0-10.0)
[2021-09-05 17:29] LABS: Troponin(5th) Baseline 22 ng/L (0-15)
[2021-09-05 17:36] LABS: ABG PCO2 29.5 mmHg (35-45); ABG PH Result 7.52 (7.35-7.45); Arterial Blood Gas Hematocrit 39.7 % (42-52); Base Excess ABG 2.1 mmol/L (-2.0-2.0); Blood Gas Allen Test Pos; Blood Gas Sample Type Arterial; Carboxyhemoglobin 1.9 %THgb (0.4-20.1); HCO3 ABG 24.1 mmol/L (22-26); HGB O2 Sat 97.1 % (95-100); Ionized Calcium Level - ABG 1.2 mmol/L (1.1-1.4); Methemoglobin 0.7 % (0.4-1.5); Oxygen Saturation ABG 99.7; Potassium Level - ABG 3.3 mmol/L (3.5-5.0)
[2021-09-05 17:36] LABS: Alanine Aminotransferase 18 U/L (0-41); Albumin Level 3.4 g/dL (3.5-5.2); Alkaline Phosphatase 202 IU/L (40-130); Blood Urea Nitrogen 33 mg/dL (8-23); Calcium 8.7 mg/dL (8.5-10.5); Carbon Dioxide 24 mmol/L (22-29); Chloride 95 mmol/L (98-107); Creatine Phosphokinase 43 U/L (39-308); Globulin 4.6 g/dL (1.3-4.6); Glucose 123 mg/dL (65-115); NT Pro B Type Natriuretic Pept 6930 pg/mL (0-450); Osmolality Calculated 289 mOsm/kg (285-295); Sodium 135 mmol/L (136-145)
[2021-09-05 17:37] LABS: Alveolar-Arterial Oxygen Gradi 71.1 mmHg (5-10); Blood Gas Operator Identificat MONRO; Blood Gas Sample Site Radial, left; Oxygen Device NRB
[2021-09-05 17:45] LABS: Anion Gap 19.7 (5-19); Potassium 3.7 mmol/L (3.5-5.1)
[2021-09-05 17:46] LABS: Aspartate Amino Transferase 28 U/L (0-40)
[2021-09-05 18:25] VITALS: BP 100/61; PULSE 70; RESP 18; O2SAT 94
[2021-09-05] MEDS: levofloxacin-dextrose 5 % 750 MG/150 ML PREMIX 100 MG IV (19:15)
[2021-09-05 19:24] LABS: SARS Covid-2 Antigen Negative (Negative)
[2021-09-05 19:53] LABS: Troponin 5 2HR 21.33 ng/L (0-15)
[2021-09-05 20:01] LABS: Troponin 5 2HR Delta -0.67 ABS# (0-10)
[2021-09-05 20:15] VITALS: BP 101/68; PULSE 54; RESP 27; O2SAT 98
[2021-09-05 20:26] LABS: Protein Urine Trace (Negative); Urine Appearance Clear (CLEAR); Urine Color Yellow (Yellow); pH Urine 5 (5-7)
[2021-09-05 20:27] LABS: Add Urine Culture? No; Add Urine Microscopic? YES; Bacteria Urine TRACE /hpf; Bilirubin Urine Neg (Negative); Blood Urine 2+ (Negative); Glucose Urine UA Norm (Normal); Hyaline Casts Urine 0-4 /lpf; Ketones Urine Negative (Negative); Leukocyte Esterase Urine Negative (Negative); Nitrate Urine Negative (Negative); RBC Urine 0-4 /hpf (0-2); Squamous Epithelial Cell Urine 0-4 /hpf (0-5); Urobilinogen Urine Norm (Negative); WBC Urine 0-4 /hpf (0-5)
[2021-09-05 20:30] VITALS: BP 102/63; PULSE 55; RESP 22; O2SAT 98
[2021-09-05 21:45] VITALS: BP 103/66; PULSE 52; RESP 24; O2SAT 94
[2021-09-05 22:44] VITALS: BP 103/66; PULSE 52; RESP 24; TEMP 36.6; O2SAT 94
[2021-09-05 22:56] LABS: Troponin 5 6HR 20.14 ng/L (0-15)
--- NOTE | 2021-09-05 22:56 | ECG_ITS ---
[facility] Test Date: 2021-09-05 Pat Name: Antonio Sheldon Department: Room: Gender: Male Golf Ball Trimmer: : 1945 Requested By: Duong Dee Order Number: [id number] Moe MD: Mando Shaikh M.D. Measurements Intervals [place] Rate: 50 P: -89 CO: 170 QRS: 257 QRSD: 147 T: 101 QT: 412 QTc: 376 Interpretive Statements ELECTRONIC ATRIAL PACEMAKER ELECTRONIC VENTRICULAR PACEMAKER -- CONTOUR ANALYSIS BASED ON INTRINSIC RHYTHM RIGHT AXIS DEVIATION [QRS AXIS > 100] RIGHT BUNDLE BRANCH BLOCK [120+ ms QRS DURATION, UPRIGHT V1, 40+ ms S IN I/aVL/V4/V5/V6] INFERIOR MYOCARDIAL INFARCTION , PROBABLY OLD [40+ ms Q WAVE AND/OR ST/T ABNORMALITY IN II/aVF] ANTEROSEPTAL MYOCARDIAL INFARCTION , OF INDETERMINATE AGE [40+ ms Q WAVE IN V1-V4] ST DEPRESSION, CONSIDER SUBENDOCARDIAL INJURY [0.1+ mV ST DEPRESSION] Compared to ECG 09/05/2021 17:29:56.ST (T wave) deviation now present Atrial fibrillation no longer present.Ventricular premature complex(es) no longer present.Aberrant conduction of supraventricular beat(s) no longer present Myocardial infarct finding still present Electronically Signed On 09-06-2021 20:16:08 SPRAY BOOTH OPERATOR by Mando Shaikh M.D. [id number]
[2021-09-05 22:57] LABS: Troponin 5 6HR Delta -1.86 ng/L (0-12)
[2021-09-08 00:02] LABS: Quest SARS-CoV-2 RNA NOT DETECTED (NOT DETECTED)
--- NOTE | 2021-09-08 09:23 | PC.NURSE ---
Pt informed of Negative COVID results
== END 2021-09-05 22:45 | disposition short-term general hospital (02) ==
PROVIDERS: Emergency Provider Family Medicine; PCP Family Medicine
DX: J96.21 Acute and chronic respiratory failure with hypoxia (principal); I11.0 Hypertensive heart disease with heart failure; I50.23 Acute on chronic systolic (congestive) heart failure; F03.90 Unspecified dementia, unspecified severity, without behavioral disturbance, psychotic disturbance, mood disturbance, and anxiety; E78.5 Hyperlipidemia, unspecified; Z95.0 Presence of cardiac pacemaker; Z95.1 Presence of aortocoronary bypass graft; Z87.891 Personal history of nicotine dependence; Z20.822 Contact with and (suspected) exposure to COVID-19
CPT/HCPCS: 36415; 36600; 71045; 80051; 80053; 81001; 82330; 82550; 82805; 83880; 84484; 85025; 87426; 87635; 93005; 96365; 99285; J1956